=== PATIENT | female | born 1950 | race Caucasian/White ===

== ENCOUNTER → 2021-05-20 | Day surgery (SDC) | payer MEDICARE, BC ==
[~2021-05-20] MED LIST: Acetaminophen 325 MG Tab PO SCH; Bupivacaine 0.25% 10 ML SDV ONE; Cyclobenzaprine 10 MG Tab PO ONE; EPINEPHrine 1 MG/ML SDV ONE; FLU Vacc QS2021(65UP)/MF59C/PF 60 MCG/0.5 ML Syringe IM ONE; Lidocaine 1% 4 ML ONE; Lidocaine 1%/Sod Bicarbonate in NS 8.4% 1 ML Syringe IDERM PRN; Midazolam 1 MG/ML 2 ML SDV ONE; Morphine 8 MG, EPINEPHrine 0.3 MG, Cefuroxime 750 MG, Ketorolac 30 MG, Sodium Chloride ... PRN; Ondansetron 4 MG/2 ML SDV ONE; Pregabalin 25 MG Cap PO SCH; Propofol 200 MG/20 ML SDV ONE; Ropivacaine 0.5% 5 MG/ML 30 ML SDV ONE; Sodium Chloride 0.9% 10 ML Syringe FLUSH PRN; Triamcinolone Acetonide 40 MG/ML 1 ML SDV ONE; Vancomycin 1 GM SDV ONE; ceFAZolin 1 GM Vial ONE; fentaNYL 100 MCG/2 ML SDV ONE; oxyCODONE 5 MG Tab PO ONE; oxyCODONE ER 10 MG TAB.ER PO SCH
[2021-05-20] MEDS: Lactated Ringers 1,000 ML IV SCH ×2 (08:48→13:18)
--- NOTE | 2021-05-20 09:23 | PCM.PREANE ---
Preanesthetic Assessment - Procedure Proposed Procedure: Left total knee arthroplasty with right knee steroid injection - Anesthesia/Transfusion/Family Hx Anesthesia History: Prior Anesthesia Without Reaction Family History of Anesthesia Reaction: No Transfusion History: No Prior Transfusion(s) - Review of Systems General: No Symptoms Pulmonary: No Symptoms Cardiovascular: No Symptoms Gastrointestinal: No Symptoms Neurological: No Symptoms Other: Reports: None - Physical Assessment NPO Status Date: 05/19/21 NPO Status Time: 00:00 Height: 1.6 m Weight: 83.5 kg ASA Class: 3 Mental Status: Alert & Oriented x3 Airway Class: Mallampati = 2 Dentition: Reports: Benson(s) Thyro-Mental Finger Breadths: 2 Mouth Opening Finger Breadths: 3 ROM/Head Extension: Full Lungs: Clear to Auscultation, Normal Respiratory Effort Cardiovascular: Regular Rate, Regular Rhythm - Imaging/EKG Impressions: EKG SB rate 52 - Allergies Allergies/Adverse Reactions: Allergies Allergy/AdvReac Type Severity Reaction Status Date / Time No Known Allergies Allergy Verified 05/17/21 12:55 - Blood Blood Available: No Product(s) Available: None - Anesthesia Plan Pre-Op Medication Ordered: None - Acknowledgements Anesthesia Type Planned: Spinal, Regional Block (adductor canal block for post- op pain control) Pt an Appropriate Candidate for the Planned Anesthesia: Yes Alternatives and Risks of Anesthesia Discussed w Pt/Guardian: Yes Pt/Guardian Understands and Agrees with Anesthesia Plan: Yes PreAnesthesia Questionnaire HEENT History: Reports: Other (See Below) Other HEENT History: RIGHT IMPACTED CERUMEN, MIDDLE EAR EFFUSION, WEARS GLASSES Cardiovascular History: Reports: High Cholesterol, Hypertension Respiratory History: Reports: SOB Gastrointestinal History: Reports: Other (See Below) Other Gastrointestinal History: TUBULAR ADENOMA Genitourinary History: Reports: Other (See Below) Other Genitourinary History: CYSTOURTHETOCELE JEWELRY FINISHER History: Reports: None Musculoskeletal History: Reports: Other (See Below) Other Musculoskeletal History: RIGHT KNEE INJURY, RIGHT WRIST SPRAIN Neurological History: Reports: None Psychiatric History: Reports: None Endocrine/Metabolic History: Reports: None Hematologic History: Reports: None Immunologic History: Reports: None Oncologic (Cancer) History: Reports: None Dermatologic History: Reports: Other (See Below) Other Dermatologic History: SEBORRHEIC KERATOSIS, VERRUCA VULGARIS, ACTINIC KERATOSIS, HERPES ZOSTER, SKIN LESION, BURN, NEVUS - Infectious Disease History Infectious Disease History: Reports: None - Past Surgical History Head Surgeries/Procedures: Reports: None HEENT Surgical History: Reports: None Cardiovascular Surgical History: Reports: None Respiratory Surgical History: Reports: None GI Surgical History: Reports: Appendectomy, Colon Female Surgical History: Reports: Hysterectomy Male Surgical History: Reports: None Endocrine Surgical History: Reports: None Neurological Surgical History: Reports: None Musculoskeletal Surgical History: Reports: None Oncologic Surgical History: Reports: None Dermatological Surgical History: Reports: Other (See Below) - SUBSTANCE USE Tobacco Use Status *Q: Never Tobacco User Tobacco Use Within Last Twelve Months: No Second Hand Smoke Exposure: No Days Per Week of Alcohol Use: 1 Number of Drinks Per Day: 0 Total Drinks Per Week: 0 Recreational Drug Use History: No - HOME MEDS Home Medications: Home Meds Acetaminophen [Tylenol] 650 mg PO Q4H PRN 05/17/21 [History] Calcium Carbonate [Calcium] 500 mg PO DAILY 05/17/21 [History] Cholecalciferol (Vitamin D3) [Vitamin D3] 5,000 unit PO DAILY 05/17/21 [History] Magnesium 250 mg PO DAILY 05/17/21 [History] hydroCHLOROthiazide [Hydrochlorothiazide] 12.5 mg PO DAILY 05/17/21 [History] Aspirin [Aspirin EC] 325 mg PO BID #84 tab 05/20/21 [Rx] Cyclobenzaprine [Flexeril] 5 mg PO BID PRN #20 tab 05/20/21 [Rx] oxyCODONE 5 - 10 mg PO Q4H PRN #40 tab 05/20/21 [Rx] - CURRENT (IN HOUSE) MEDS Current Meds: Current Medications Acetaminophen (Acetaminophen 325 Mg Tab) 975 mg PO ONETIME GEORGI Stop: 05/20/21 16:00 Last Admin: 05/20/21 08:40 Dose: 975 mg Documented by: Morphine Sulfate 8 mg/Epinephrine HCl 0.3 mg/Cefuroxime Sodium 750 mg/Ketorolac Tromethamine 30 mg/Sodium Chloride 7.9 ml 0 mg .XX ASDIRECTED PRN PRN Reason: Pain Stop: 05/20/21 18:00 Lactated Ringer's (Ringers, Lactated) 1,000 mls @ 125 mls/hr IV ASDIRECTED GEORGI Stop: 05/20/21 23:00 Influenza Virus Vaccine (Flu Vacc [id number](65up)/Mf59c/Pf 60 Mcg/0.5 Ml Syringe) 60 mcg IM .ONCE ONE Stop: 05/20/21 13:01 Lidocaine/Sodium Bicarbonate (Lidocaine 1%/Sod Bicarbonate In Ns 8.4% 1 Ml Syringe) 0.25 ml IDERM ONETIME PRN PRN Reason: Prior to IV Start Stop: 05/20/21 18:00 Oxycodone HCl (Oxycodone Er 10 Mg Tab.Er) 10 mg PO ONETIME GEORGI Stop: 05/20/21 16:00 Last Admin: 05/20/21 08:39 Dose: 10 mg Documented by: Pregabalin (Pregabalin 25 Mg Cap) 50 mg PO ONETIME GEORGI Stop: 05/20/21 16:00 Last Admin: 05/20/21 08:40 Dose: 50 mg Documented by: Sodium Chloride (Sodium Chloride 0.9% 10 Ml Syringe) 10 ml FLUSH ASDIRECTED PRN PRN Reason: Keep Vein Open Stop: 05/20/21 18:00 Discontinued Medications Influenza Virus Vaccine (Pharmacy To Dose - Influenza Vaccine) 1 each IM ONETIME ONE Stop: 05/20/21 09:01
--- NOTE | 2021-05-20 12:52 | PCM.POSTAN ---
POST ANESTHESIA ASSESSMENT - MENTAL STATUS Mental Status: Alert, Oriented - VITAL SIGNS Vital Signs: Last Vital Signs Temp 36.7 C 05/20/21 08:42 Pulse 75 05/20/21 08:42 Resp 17 05/20/21 08:42 BP 116/90 05/20/21 08:42 Pulse Ox 98 05/20/21 08:42 - RESPIRATORY Respiratory Status: Respiratory Rate WNL, Airway Patent, O2 Saturation Stable, Supplemental Oxygen - CARDIOVASCULAR CV Status: Pulse Rate WNL, Blood Pressure Stable - GASTROINTESTINAL GI Status: No Symptoms - PAIN Pain Score: 0 - POST OP HYDRATION Hydration Status: Adequate & Stable - OBSERVATIONS Free Text/Narrative:: NO ANESTHESIA COMPLICATIONS NOTED
--- NOTE | 2021-05-20 13:19 | PCM.SN.2 ---
- Free Text/Narrative Note: Left selective femoral nerve block at the adductor canal for post-procedure pain control under US guidance requested by Dr. Prescott. Time Out: 1301 Start: 1301 End: 1310 Chart reviewed. Consent signed. Questions answered. Appropriate monitors applied. Time out performed. Left mid-shaft femur identified with ultrasound, scanning medially of femur, the femoral artery in the adductor canal visualized, and the femoral nerve located laterally to the artery. The skin was prepped lateral to the ultrasound probe with chlorahexadine times two. The 21ga 4 insulated block needle was inserted under direct ultrasound guidance into the adductor canal. 30 mL of 0.5% ropivacaine with 1:200,000 epinephrine was injected circumferentially around the nerve with intermittent negative aspiration noted. Patient tolerated the procedure well. Sterile technique noted along with sterile gloves, mask, and sterile probe cover. See picture on progress note and vital signs on nurses notes. Block completed in PACU. Kalpesh Rowe CRNA Time Documentation
--- NOTE | 2021-05-20 13:36 | PCM48HPAN ---
Post Anesthesia Note - EVALUATION WITHIN 48HRS OF ANESTHETIC Vital Signs in Normal Range: Yes Patient Participated in Evaluation: Yes Respiratory Function Stable: Yes Airway Patent: Yes Cardiovascular Function Stable: Yes Hydration Status Stable: Yes Pain Control Satisfactory: Yes Nausea and Vomiting Control Satisfactory: Yes Mental Status Recovered: Yes Vital Signs: Last Vital Signs Temp 36.7 C 05/20/21 13:30 Pulse 86 05/20/21 13:15 Resp 12 05/20/21 13:30 BP 110/49 L 05/20/21 13:30 Pulse Ox 95 05/20/21 13:30 - COMMENTS/OBSERVATIONS Free Text/Narrative:: no anesthesia complications noted
--- NOTE | 2021-05-20 13:57 | CR ---
Left knee: AP and lateral views of the left knee were obtained. Comparison: Prior left knee CT study of 05/03/21. Knee prosthesis and patellar prosthesis are seen. Components appear aligned. Soft tissue air is seen. Underlying bony structures appear intact. Impression: 1. Satisfactory postoperative radiographic appearance of recently placed left knee prostheses. Diagnostic code #2
--- NOTE | 2021-05-28 19:10 | PCM.OPNOTE ---
- General Post-Op/Procedure Note Date of Surgery/Procedure: 05/20/21 Operative Procedure(s): left total knee arthroplasty with right knee corticosteroid injection Pre Op Diagnosis: bilateral knee osteoarthrosis Post-Op Diagnosis: Same Anesthesia Technique: Local, MAC, Spinal Primary Surgeon: Toni Prescott Anesthesia Provider: Kalpesh Rowe Lacquer Spray Booth Operator: Indiana Garrison Lacquer Spray Booth Operator: Selam Luque EBL in mLs: 25 Complications: None Condition: Good Free Text/Narrative:: 4/3 9mm 32x10
--- NOTE | 2021-06-03 08:14 | OR ---
DATE OF OPERATION: 05/20/2021 SURGEON: Toni Prescott MD OPERATION PERFORMED: Left total knee arthroplasty with right knee corticosteroid injection. PREOPERATIVE DIAGNOSIS: Bilateral knee osteoarthrosis. POSTOPERATIVE DIAGNOSIS: Bilateral knee osteoarthrosis. ANESTHESIA: Local MAC with spinal. ANESTHESIA PROVIDER: Portillo Herrera. ASSISTANTS: Indiana Garrison PA-C; and Selam Luque LPN. ESTIMATED BLOOD LOSS: 25 mL. COMPLICATIONS: None. CONDITION: Stable. IMPLANTS: 1. Chanda size 4 press-fit CR femur. 2. Chanda size 3 press-fit tibial baseplate. 3. [place] size 3, 9 mm CS polyethylene insert. 4. [place] size 32 x 10 mm press-fit patella. DESCRIPTION OF PROCEDURE: The patient was identified in the preop holding area. Proper site was marked and identified by the surgeon. The patient was taken back to the operating theater, where after adequate anesthesia, the patient's left lower extremity had a nonsterile tourniquet applied and then it was sterilely prepped and draped in the usual sterile fashion. OR time-out was performed. The patient received 2 g IV Ancef. Leg alonso was then applied to the left lower extremity. At this time, the left lower extremity was exsanguinated. Tourniquet was insufflated to 250 mmHg. Standard anterior incision was made. Medial parapatellar arthrotomy was created. Deep fibers of the MCL were raised and anterior fat pad was resected. Attention was turned to the patella. Patella measured 21, it was resected to a 13 for a 32 x 10 mm patella. Drill holes were then drilled. Attention was then turned to the femur. Two 4.0 Schanz pins were placed intra- incisionally on the femur for the Chanda Darnell robotic array and then 2 more were placed on the tibia 3 fingerbreadths below the tibial tubercle. The [place] Darnell robotic arrays were placed on both the femur and the tibia at this time as well as checkpoints on the femur and tibia. Hip center rotation was then obtained. The medial and lateral malleoli were marked as well as the checkpoints were marked for the [place] Darnell robotic plan. The patient's knee was brought to full extension, varus and valgus stresses were applied, and then into 90 degrees of flexion. Chanda Darnell robotic plan for this patient was then undertaken to match the flexion and extension gaps. A straight saw blade was then brought in. Tibial cut was completed as well as an anterior femoral cut, anterior chamfer cut, and posterior femoral cut. Saw blade was then switched out and the distal femoral cut as well as the posterior chamfer cut was completed. All bony fragments were removed. At this time, medial and lateral menisci were resected as well as any posterior osteophytes. Attention was turned to the tibia. The size 3 trial baseplate was placed on the tibia and a size 4 trial femur was placed on the femur. A size 3 9 mm trial poly was placed. The patient's knee was brought to full extension and flexion. Varus and valgus stresses were applied, was found to be stable with no instability. No signs of liftoff or loosening on the tibial baseplate. At this time, femoral drill holes were drilled, and the tibia was stamped and drilled in proper rotation. All trial implants were then removed. The size 3 tibial baseplate was impacted into place, size 4 femoral component was impacted into place, and then a size 3 9 mm CS polyethylene insert was impacted into place. A size 32 x 10 mm press-fit patella was then press-fit into place. The tourniquet was deflated. Bleeders were cauterized. 1 L pulse lavage irrigation with Ancef was irrigated through the knee along with 400 mL IrriSept irrigation. Periarticular injection was completed. Topical tranexamic acid and vancomycin powder were applied. All checkpoints and pins were removed. At this point, a #2 barbed suture was used for closure of the medial parapatellar arthrotomy in flexion. 2- 0 Vicryl and Stratafix were used for subcutaneous closure. Prineo was used for cutaneous closure. 3-0 nylons were used for closure of the pin holes on the tibia. The patient had a sterile soft dressing applied. The patient had an RAMEZ wrap applied and was sent to PACU in stable condition. The patient tolerated the procedure well. After this was completed, and under sterile technique, 2 mL of 40 mg Kenalog and 4 mL of 0.25% Marcaine were injected to the right knee. The patient tolerated all procedures well. MMODAL /[id number] JOSTIN
== END | disposition home or self-care (01) ==
LOC: JD.SDS 08:28
PROVIDERS: ATTEND Orthopaedic Surgery
DX: M17.0 Bilateral primary osteoarthritis of knee (principal); E78.5 Hyperlipidemia, unspecified; I10 Essential (primary) hypertension; Z79.899 Other long term (current) drug therapy; Z90.49 Acquired absence of other specified parts of digestive tract; Z98.890 Other specified postprocedural states
CPT/HCPCS: 20610; 27447; 73560; 90694; 97110; 97116; 97161; A9270; C1713; C1776; G0008; J0171; J0690; J0697; J1885; J2250; J2270; J2370; J2405; J2704; J2795; J3010; J3301; J3370; J3490; J7120; 01402

== ENCOUNTER → 2022-05-19 | Day surgery (SDC) | payer MEDICARE, BC ==
[~2022-05-19] MED LIST changes: +Acetaminophen 325 MG Tab ONE; -Acetaminophen 325 MG Tab PO SCH; -Bupivacaine 0.25% 10 ML SDV ONE; -Cyclobenzaprine 10 MG Tab PO ONE; -FLU Vacc QS2021(65UP)/MF59C/PF 60 MCG/0.5 ML Syringe IM ONE; +Lactated Ringers 1,000 ML ONE; -Lidocaine 1%/Sod Bicarbonate in NS 8.4% 1 ML Syringe IDERM PRN; +Morphine 8 MG, EPINEPHrine 0.3 MG, Cefuroxime 750 MG, Ketorolac 30 MG, Sodium Chloride ... ONE; -Morphine 8 MG, EPINEPHrine 0.3 MG, Cefuroxime 750 MG, Ketorolac 30 MG, Sodium Chloride ... PRN; -Ondansetron 4 MG/2 ML SDV ONE; +Phenylephrine HCl In 0.9% NaCl 1 MG/10 ML Vial ONE; +Pregabalin 25 MG Cap ONE; -Pregabalin 25 MG Cap PO SCH; -Sodium Chloride 0.9% 10 ML Syringe FLUSH PRN; -Triamcinolone Acetonide 40 MG/ML 1 ML SDV ONE; -ceFAZolin 1 GM Vial ONE; +ceFAZolin 2 GM Vial ONE; +ePHEDrine 50 MG/ML SDV ONE; +oxyCODONE 5 MG Tab ONE; -oxyCODONE 5 MG Tab PO ONE; +oxyCODONE ER 10 MG TAB.ER ONE; -oxyCODONE ER 10 MG TAB.ER PO SCH
== END ==
LOC: JD.SDS 06:00
PROVIDERS: ATTEND Orthopaedic Surgery
DX: M17.11 Unilateral primary osteoarthritis, right knee (principal); I10 Essential (primary) hypertension; Z79.899 Other long term (current) drug therapy; Z90.710 Acquired absence of both cervix and uterus; Z98.890 Other specified postprocedural states; Z90.49 Acquired absence of other specified parts of digestive tract
CPT/HCPCS: 0055T; 27447; 73560; 97161; J0171; J0690; J0697; J1885; J2250; J2270; J2704; J2795; J3010; J3370; J7120; 01402; 64450; 76942; C1713; C1776